=== PATIENT | male | born 1995 | race Caucasian/White ===

== ENCOUNTER 2019-06-02 18:27 | Emergency (ER) | payer SELFPAY ==
[2019-06-02] MEDS ORDERED: Bicillin LA 1.2 MILLION UNITS/2 ML SYRINGE ONE (19:25)
== END 2019-06-02 20:15 | disposition home or self-care (01) ==
LOC: ERS 18:27
DX: J02.0 Streptococcal pharyngitis (principal); F17.220 Nicotine dependence, chewing tobacco, uncomplicated
CPT/HCPCS: 87430; 96372; 99282; J0561

== ENCOUNTER 2019-06-02 22:42 | Emergency (ER) | payer SELFPAY | END 2019-06-02 23:57 | disposition left against medical advice (07) | LOC: ERS 22:42 | DX: Z53.21 Procedure and treatment not carried out due to patient leaving prior to being seen by health care provider (principal) ==